=== PATIENT | male | born 1995 | race Caucasian/White ===

== ENCOUNTER 2022-05-25 14:01 | Emergency (ER) | payer OTHER, MEDICAID ==
[~2022-05-25] VITALS: Ht 172.7 cm; Wt 65.9 kg
[2022-05-25 14:26] VITALS: BP 123/69
--- NOTE | 2022-05-25 15:42 | NUR ---
pt left without d/c instructions at this time after speaking with
== END 2022-05-25 16:09 | disposition home or self-care (01) ==
LOC: ER 14:03
DX: R42 Dizziness and giddiness (principal); V29.408A Other motorcycle driver injured in collision with unspecified motor vehicles in traffic accident, initial encounter; Y93.89 Activity, other specified; Y92.89 Other specified places as the place of occurrence of the external cause; Y99.8 Other external cause status
CPT/HCPCS: 99281